=== PATIENT | female | born 1970 | race Caucasian/White ===

== ENCOUNTER → 2021-01-25 01:06 | Outpatient (CLI) | payer OTHER, SELFPAY ==
[2021-01-25 18:53] LABS: SARS-CoV-2 RNA PCR Negative
== END ==
PROVIDERS: Visit Provider Internal Medicine Gastroenterology
DX: Z01.812 Encounter for preprocedural laboratory examination (principal); Z20.822 Contact with and (suspected) exposure to COVID-19
CPT/HCPCS: C9803; U0003; U0005

== ENCOUNTER 2021-01-28 01:55 | Day surgery (SDC) | payer OTHER, SELFPAY ==
[2020-11-28 14:18] VITALS: BMI 36.3
[2021-01-16 11:47] VITALS: BMI 36.3
[2021-01-28 12:45] VITALS: BP 135/79; PULSE 78; RESP 18; TEMP 36.4; O2SAT 100; BMI 34.4
[2021-01-28] MEDS: LACTATED RINGERS 1,000 ML 150 ML IV CONT (12:57)
[2021-01-28 13:23] LABS: Glucose Point of Care 93 (65-105)
--- NOTE | 2021-01-28 13:32 | P.PNAN_ITS ---
Anes - Initial Pre Proc Eval Procedure: Operation Date: 01/28/21 13:30 Proposed Procedures p Esophagogastroduodenoscopy And Screening Colonoscopy - Madi Clay MD Date/Time: 01/28/21 13:32 Surgeon: Madi Caruso MD Pre Op Diagnosis: Neoplasm Screening, Heartburn Patient Data Age: 50 Gender: F Height: 5 ft 6 in Weight: 96.9 kg Last Vital Signs Temp 97.6 F 01/28/21 12:45 Pulse 78 01/28/21 12:45 Resp 18 01/28/21 12:45 BP 135/79 01/28/21 12:45 Pulse Ox 100 01/28/21 12:45 Allergies Allergy/AdvReac Type Severity Reaction Status Date / Time No Known Allergies Allergy Unverified 01/28/21 12:43 Home Medications Medication Instructions Recorded Confirmed Type Zypan 3 tab-cap PO TID 11/28/20 01/28/21 History ergocalciferol (vitamin D2) 50,000 unit PO WEEKLY 11/28/20 01/28/21 History losartan-hydrochlorothiazide 1 tablet PO DAILY 11/28/20 01/28/21 History metoprolol succinate 50 mg PO DAILY 11/28/20 01/28/21 History omeprazole 20 mg PO DAILY 11/28/20 01/28/21 History semaglutide [Ozempic] 1 mg SUBCUT WEEKLY 11/28/20 01/28/21 History simvastatin 10 mg PO DAILY 11/28/20 01/28/21 History Laboratory Tests 01/28/21 13:21 POC Capillary Glucose 93 mg/dl mg/dl (65-105) Patient hx anesthesia problems: none Family hx anesthesia problems: none [facility] Past Medical History Medical History (Updated 01/28/21 @ 13:32 by Anurag Eastman MD) Anemia Diabetes GERD (gastroesophageal reflux disease) Hyperlipidemia Hypertension Social History Social History Smoking status: Never smoker Substance use: never Substance use type: does not use Living arrangements: with family Spiritual care concerns: No Anes - Eval Final PreProcedure Day of Procedure 01/28/21 13:32 Patient weight: obese Heart: regular rate and rhythm Lungs: clear to auscultation Airway: Mallampati scale class II Neurological: alert and oriented Last oral intake: >/= 8 hours ASA classification: III Emergent: no Anesthetic plan: proceed Anesthesia type and monitoring: general GIVS and standard monitoring Informed Consent: The patient's anesthetic plan and its attendant risks and benefits were discussed with the patient/family/POA. Questions were solicited and answers provided to the satisfaction of the patient/family/POA.
--- NOTE | 2021-01-28 14:03 | PM.HPGS ---
History of Present Illness History of Present Illness Consent: Risks, benefits, and alternatives have been discussed and questions answered. Patient agrees to proceed with procedure. Chief complaint: Neoplasm Screening, Heartburn Narrative: Katy Kellogg is a 50 year old female with gerd on omeprazole for years, last EGD 5 years ago (grandmother had esophageal cancer), last colonoscopy more than 5 years ago. Review of Systems Constitutional: Constitutional: Denies headache(s) and Denies weakness Eyes: Eyes: Denies blurry vision ENT: Reports Normal hearing present, Denies headache(s) and Denies neck pain Cardiovascular: Cardiovascular: Denies chest pain and Denies dyspnea Respiratory: Respiratory: Denies dyspnea Gastrointestinal: Gastrointestinal: Reports no additional gastrointestinal complaints Genitourinary: Genitourinary: Denies dysuria Musculoskeletal: Musculoskeletal: Denies neck pain Integumentary/Breasts: Skin/Breast: Denies dry skin Neurologic: Reports Normal hearing present, Denies headache(s) and Denies weakness Psychiatric: Psychiatric: Denies anxiety Endocrine: Endocrine: Denies change in body appearance Hematologic/Lymphatic: Hematologic/Lymphatic: Denies easy bleeding Allergic/Immunologic: Allergic/Immunologic: Denies urticaria PMFSH Past Medical History Medical History (Updated 01/28/21 @ 14:04 by Madi Caruso MD) Anemia Colon cancer screening Diabetes GERD (gastroesophageal reflux disease) Hyperlipidemia Hypertension Social History Social History Smoking status: Never smoker Substance use: never Substance use type: does not use Living arrangements: with family Spiritual care concerns: No Meds Home Medications and Allergies Home Medications Medication Instructions Recorded Confirmed Type Zypan 3 tab-cap PO TID 11/28/20 01/28/21 History ergocalciferol (vitamin D2) 50,000 unit PO WEEKLY 11/28/20 01/28/21 History losartan-hydrochlorothiazide 1 tablet PO DAILY 11/28/20 01/28/21 History metoprolol succinate 50 mg PO DAILY 11/28/20 01/28/21 History omeprazole 20 mg PO DAILY 11/28/20 01/28/21 History semaglutide [Ozempic] 1 mg SUBCUT WEEKLY 11/28/20 01/28/21 History simvastatin 10 mg PO DAILY 11/28/20 01/28/21 History Allergies Allergy/AdvReac Type Severity Reaction Status Date / Time No Known Allergies Allergy Unverified 01/28/21 12:43 Vital Signs Vital Signs - 24 hr 01/28/21 12:45 Temperature 97.6 F Pulse Rate 78 Respiratory Rate 18 Blood Pressure 135/79 Pulse Oximetry 100 Exam Const: General: comfortable and no acute distress HENMT: General nose exam: Normal nares present Eyes: General: appearance normal, both eyes and all related structures Neck: Neck: no JVD Resp: Auscultation: clear to auscultation bilaterally Cardio: Rate: regular rate Rhythm: regular rhythm GI: Inspection: non-distended GI Palp: Yes Soft to palpation Skin: General skin exam: normal color Neuro: General: gait normal Speech: normal speech Extrem: General: normal to inspection Psych: Mental Status: mental status grossly normal Assessment and Plan Assessment and plan (1) Colon cancer screening: Code(s): Z12.11 - Encounter for screening for malignant neoplasm of colon Status: Acute Assessment and Plan: colonoscopy (2) GERD (gastroesophageal reflux disease): Code(s): K21.9 - Gastro-esophageal reflux disease without esophagitis Status: Acute Assessment and Plan: egd with bx, already on ppi
[2021-01-28] MEDS: BENZOCAINE (*SP) 60 ML SPRAY CAN (HURRICAINE) 1 SPRAY MUCOUS MEM (14:08)
[2021-01-28 14:34] VITALS: BP 126/75; PULSE 82; RESP 25; O2SAT 99
[2021-01-28 14:44] VITALS: BP 124/65; PULSE 71; RESP 19; O2SAT 99
[2021-01-28 14:48] VITALS: BP 137/89; PULSE 74; RESP 17; O2SAT 99
--- NOTE | 2021-01-28 15:06 | SUR.OPER ---
EGD START 1408, END 1413 COLONOSCOPY START 1420, END 1431
== END 2021-01-28 15:06 | disposition home or self-care (01) ==
PROVIDERS: PCP Family Medicine; Referring Provider Obstetrics & Gynecology Gynecology; Visit Provider Internal Medicine Gastroenterology
PROC: 0DJ08ZZ Inspection of Upper Intestinal Tract, Via Natural or Artificial Opening Endoscopic (ICD-10-PCS; CPT 43235; principal; 2021-01-28 13:30)
DX: Z12.11 Encounter for screening for malignant neoplasm of colon (principal); K64.8 Other hemorrhoids; K21.00 Gastro-esophageal reflux disease with esophagitis, without bleeding; K44.9 Diaphragmatic hernia without obstruction or gangrene; K31.7 Polyp of stomach and duodenum; I10 Essential (primary) hypertension; E11.9 Type 2 diabetes mellitus without complications; E78.5 Hyperlipidemia, unspecified; D64.9 Anemia, unspecified; E66.9 Obesity, unspecified; Z68.34 Body mass index [BMI] 34.0-34.9, adult
CPT/HCPCS: 45378; 43239; 82948; 88305; 88313; C9803; J2704; J7120; U0003; U0005

== ENCOUNTER → 2021-08-22 08:53 | Outpatient (CLI) | payer OTHER, SELFPAY ==
--- NOTE | ~2021-08-22 | MMUS_ITS ---
EXAMINATION: MM diagnostic tl BI w nelly, US breast RT limited HISTORY: History of bilateral breast reduction surgery. Focal right breast thickening in the region o f the right axillary tail TECHNIQUE: Additional 3-D tomosynthesis images of the breasts were performed and synthetic 2-D images were generated. CAD analysis was submitted and interpreted. High resolution Limited right breast ult rasound was performed. COMPARISON: None BREAST PARENCHYMAL COMPOSITION: Breast composed of scattered areas of fibroglandular density. FINDINGS: MAMMOGRAPHIC FINDINGS: There are no suspicious masses, calcifications or architectural distortion in either breast to sugges t malignancy. There is distortion of both breasts consistent with previous breast reduction surgery. ULTRASOUND: Limited right breast ultrasound: Normal heterogeneous echotexture without focal solid or cystic mass. IMPRESSION: 1. No evidence for malignancy in either breast. 2. Routine yearly screening mammogram and regular clinical breast examination are recommended. BI-RADS Category 1: Negative Reviewed, dictated and finalized at location A. IMPRESSION: 1. No evidence for malignancy in either breast. 2. Routine yearly screening mammogram and regular clinical breast examination a re recommended. BI-RADS Category 1: Negative
== END ==
PROVIDERS: PCP Family Medicine; Visit Provider Family Medicine
DX: D48.1 Neoplasm of uncertain behavior of connective and other soft tissue (principal); R92.8 Other abnormal and inconclusive findings on diagnostic imaging of breast
CPT/HCPCS: 76642; 77062; 77066; G0279

== ENCOUNTER → 2023-03-30 13:57 | Outpatient (CLI) | payer OTHER, SELFPAY ==
--- NOTE | ~2023-03-30 | MM_ITS ---
EXAMINATION: MM screening tl BI w nelly HISTORY: Screening mammogram TECHNIQUE: Craniocaudal and mediolateral oblique 3-D tomosynthesis images were obtained and synthetic 2-D images were generated. CAD analysis was submitted and interpreted. COMPARISON: 08/22/2021 diagnostic bilateral mammogram and limited right breast ultrasound 07/25/2018 bilateral screening mammogram BREAST PARENCHYMAL COMPOSITION: There are scattered areas of fibroglandular density. FINDINGS: There is stable fibroglandular asymmetry likely related to history of bilateral breast redu ction mammoplasty There is no evidence of suspicious mass, calcification, or architectural distortion to suggest malignancy in either breast. There has been no suspicious interval change. IMPRESSION: 1. No mammographic evidence of malignancy. 2. Recommend routine screening mammography in one year. BI-RADS Category 1: Negative Reviewed, dictated and finalized at location A.
== END ==
PROVIDERS: PCP Family Medicine; Visit Provider Obstetrics & Gynecology Gynecology
DX: Z12.31 Encounter for screening mammogram for malignant neoplasm of breast (principal)
CPT/HCPCS: 77063; 77067

== ENCOUNTER 2024-11-16 10:59 | Outpatient (CLI) | payer OTHER, SELFPAY ==
--- NOTE | ~2024-11-16 | MM_ITS ---
EXAMINATION: MM screening tl BI w nelly HISTORY: Screening TECHNIQUE: Craniocaudal and mediolateral oblique 3-D tomosynthesis images were obtained and synthetic 2-D images were generated. CAD analysis was submitted and interpreted. COMPARISON: Comparison to multiple prior studies sequentially, with oldest reviewed study dated 02/2021. BREAST PARENCHYMAL COMPOSITION: Not dense: There are scattered areas of fibroglandular density. FINDINGS: There is distortion of both breasts, consistent with prior breast reduction surgery. There is no evidence of suspicious mass, calcification, or architectural distortion to suggest malignancy i n either breast. There has been no suspicious interval change. IMPRESSION: 1. No mammographic evidence of malignancy. 2. Recommend routine screening mammography in one year. BI-RADS Category 2: Benign finding(s). Reviewed, dictated and finalized at location A. ELLA MENDER
== END 2024-11-16 11:00 | disposition home or self-care (01) ==
LOC: MICIMG 11:02
PROVIDERS: PCP Obstetrics & Gynecology Gynecology; Visit Provider Obstetrics & Gynecology Gynecology
DX: Z12.31 Encounter for screening mammogram for malignant neoplasm of breast (principal)
CPT/HCPCS: 77063; 77067

== ENCOUNTER 2025-08-31 10:05 | Outpatient (CLI) | payer OTHER, SELFPAY ==
--- NOTE | ~2025-08-31 | US_ITS ---
EXAMINATION: US pelvic complete, 08/31/2025 10:10 PHARMACY CLINICAL COORDINATOR HISTORY: Post menopause bleeding Comparison: None Technique: Morillo-scale and color Doppler images were obtained. Findings: Uterus: Uterus anteverted 12.4 x 7 x 10.6 cm, there are fibroids identified the largest in the anterior uterine body 4.9 x 4.8 cm. . Endometrium 1.4 cm. Right Ovary:Right ovary not identified. Left Ovary: Left ovary not identified. Free Fluid: None Impression: Probable fibroids detailed above. Abnormally thickened endometrium consenting for neoplasm. Tissue sampling recommended. Reviewed, dictated and finalized at location P. MACY CLINICAL COORDINATOR Impression: Probable fibroids detailed above. Abnormally thickened endometrium consenting f or neoplasm. Tissue sampling recommended.
== END 2025-08-31 10:06 | disposition home or self-care (01) ==
PROVIDERS: PCP Obstetrics & Gynecology Gynecology
DX: N95.0 Postmenopausal bleeding (principal)
CPT/HCPCS: 76856

== ENCOUNTER 2025-09-12 08:01 | Outpatient (CLI) | payer OTHER, SELFPAY ==
--- OUTSIDE RECORDS SUMMARY | 2025-09-12 08:07 | XMS_ITS | Clinical Summary ---
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 Gender Identity Not on file Sexual Orientation Not on file Plan of Treatment Health Maintenance Due Date Last Done Comments Cervical Cancer Screening Pa p Smear (Age 30 to 64) Every 3 Years 1969 Colorectal Cancer Screening Colonoscopy (10 Years) 1969 Annual Physical 1972 Hepatitis C 1987 DTaP, Tdap and Td Vaccines ( 1 - Tdap) 1988 Hepatitis B Vaccines (1 of 3 - 19+ 3-dose series) 1988 Cervical Cancer Screening Pa p with HPV Testing (Age 30 to 64) Every 5 Years 1999 Cervical Cancer Screening with HPV 1999 Mammogram Screening 2009 Pneumococcal Vaccine: 50+ Ye ars (1 of 1 - PCV) 2019 Zoster Vaccines (1 of 2) 2019 COVID-19 Vaccine (1 - 2024-2 6 season) 2025 Influenza Adult (#1) 2025 Hepatitis A Vaccines Aged Out No long er eligible based on patient's age to complete this topic Meningococcal B Vaccine Aged Out No l onger eligible based on patient's age to complete this topic Meningococcal Vaccine Aged Out No nichole ron eligible based on patient's age to complete this topic RSV Immunizations Under 20 Months Aged Out No longer eligible based on patient's age to complete this topic Advance Directives Documents on File Type Date Recorded Patient Patient Portal Representative Expl anation Advance Directives and Living Will 09/16/2015 POWER OF [employer] [facility]
[2025-09-12 10:26] LABS: Anion Gap 8 mmol/L (4-12); Blood Urea Nitrogen 11 mg/dL (7-17); Calcium 9.5 mg/dL (8.4-10.2); Carbon Dioxide 27 mmol/L (22-30); Chloride 102 mmol/L (98-107); Estimated Glomerular Filt Rate > 60; Glucose 103 mg/dL (65-110); Potassium 3.2 mmol/L (3.4-5.0); Sodium 137 mmol/L (137-145)
== END 2025-09-12 08:02 | disposition home or self-care (01) ==
LOC: ANHSURGERY 08:05
PROVIDERS: Anesthesiology; PCP Family Medicine; Visit Provider Obstetrics & Gynecology Gynecology
DX: Z79.899 Other long term (current) drug therapy (principal); Z01.818 Encounter for other preprocedural examination
CPT/HCPCS: 36415; 80048

== ENCOUNTER 2025-09-17 01:42 | Day surgery (SDC) | payer OTHER, SELFPAY ==
[2025-09-10 09:57] VITALS: BMI 33.2
--- NOTE | 2025-09-10 12:19 | PC.NURSE ---
[facility] has started construction of its new state of the art ER which will open Spring 2026. With this, we anticipate parking may be a challenge for some our surgical patients and families. Parking spaces are limited but are available for all Surgical, obstetrics, and ER patients sharing this lot. If you arrive and find you are having a hard time finding a parking space, please note that we understand the challenges, please drive around the hospital and park near Hospital Entrance 1. When you enter this entrance, you can ask a volunteer to direct or take you back to the surgical waiting area to check in. We appreciate everyone?s understanding of these expected challenges while we build for your future. Report to the Outpatient Waiting Room, entrance under the green pavilion located off [address], at time _0745 on date __09/17/25 . Planned Procedure Time: __0945 .? Time changes happen often and if your time is changed the preop area will call you the afternoon before. - You and your visitor will be asked to self-screen and do not enter if you have any COVID symptoms. Please call surgeon if you need to reschedule. - A mask is optional within the hospital at this time. Patients may have clear liquids (water, carbonated beverages, clear teas, apple juice) until 3 hours prior to surgery with a maximum of 20 ounces. - No food from midnight until time of surgery and no smoking, or chewing tobacco (or any form of nicotine). No chewing gum, candy or mints. - Infants may have breast milk until 4 hours before surgery, infant formula 6 hours prior to surgery. - Children will be allowed to drink immediately following surgery.? If applicable, please bring a bottle or sippy cup to assist with drinking. Juice, water, soda, and popsicles are readily available.? For infants on formula, please bring formula the day of surgery.? Pacifiers are allowed. Take only the following medications with a SIP of water on the morning of surgery: _N/A DO NOT STOP ANY OF YOUR OTHER PRESCRIPTION MEDICATIONS PRIOR TO SURGERY EXCEPT THE FOLLOWING Hold all vitamins and supplements for 3 days per anesthesiologist. Medications to discontinue per physician __N/A Date to take last dose Please no make-up, nail gambian, hairspray, perfume, deodorant, or body powder the day of surgery.? No jewelry (including any body piercings) or valuables the day of surgery, leave them at home.? Please take a shower or bath the night before, or the morning of, surgery with an antibacterial soap.? Wear comfortable, loose fitting clothing.? Children are encouraged to wear pajamas. - Jewelry must be removed prior to entering the operating room.? Rings and piercings that are not removed may be cut off. - The hospital will not accept responsibility for valuables.? - Please leave all valuables, including medications, at home the day of surgery. If you are going home after surgery, a licensed trailer tank truck driver must drive you home.? - NO public transportation without another adult if you receive anesthesia. - We recommend that an adult stay with you for 24 hours following discharge. - We also recommend that you do not drive, make important decision, drink alcoholic beverages, or take any drugs that were not prescribed by your health care provider for at least 24 hours after your discharge time. For Pediatric surgeries, we recommend two adults accompany the child home. Follow any additional instructions given to you from your surgeon. Telephone instructions given to Alexis and asked if any additional questions and then verbalized understanding. Patient advised to call surgeon office or pre surgery nurse liaison [phone] if any additional questions.
--- NOTE | 2025-09-17 07:40 | WPDHPUPDATE1 ---
History and Physical Update Update Date/Time: 09/17/25 07:40 History and Physical has been reviewed, including an updated exam of the patient. There are NO changes in the patient's condition. Risks, benefits, and alternatives have been discussed and questions answered. Patient agrees to proceed with procedure.
--- NOTE | 2025-09-17 07:40 | PM.HPGS ---
History of Present Illness History of Present Illness Consent: Risks, benefits, and alternatives have been discussed and questions answered. Patient agrees to proceed with procedure. Chief complaint: post menopausal bleeding Narrative: Katy Kellogg is a 55 year old female with postmenopausal bleeding and thickened endometrium at 1.4cm. It was recommended to undergo D&C hysteroscopy. Risks of infection, bleeding, perforation, and possible pathology are reviewed. Patient voices understanding and agrees to proceed. Review of Systems Review of Systems: not repeated day of surgery; patient states no changes in status [facility] Past Medical History Medical History (Updated 09/17/25 @ 07:43 by Tricia Moctezuma MD) (normal spontaneous vaginal delivery) X3 Hypothyroid Diabetes GERD (gastroesophageal reflux disease) Hyperlipidemia Hypertension Surgical History Surgical History (Updated 09/17/25 @ 07:42 by Tricia Moctezuma MD) History of hysteroscopy 2017 with myomectomy History of bilateral breast reduction surgery Hx of [facility] Social History Social History Smoking status: Never smoker Substance use: never Substance use type: does not use Living arrangements: with family Spiritual care concerns: No Meds Home Medications and Allergies Home Medications ?Medication ?Instructions ?Recorded ?Confirmed ?Type ergocalciferol (vitamin D2) 1,250 50,000 unit PO WEEKLY 11/28/20 09/10/25 History mcg (50,000 unit) capsule losartan 100 1 tablet PO DAILY 11/28/20 09/10/25 History mg-hydrochlorothiazide 25 mg tablet metoprolol succinate 50 mg 50 mg PO HS 11/28/20 09/10/25 History tablet,extended release 24 hr omeprazole 20 mg capsule,delayed 20 mg PO DAILY 11/28/20 09/10/25 History release progesterone PO DAILY 09/10/25 History tirzepatide 12.5 mg/0.5 mL 12.5 mg subcut WEEKLY 09/10/25 09/10/25 History subcutaneous pen injector (Mounjaro) Allergies Allergy/AdvReac Type Severity Reaction Status Date / Time No Known Allergies Allergy Verified 09/10/25 09:50 Exam Const: General: healthy appearing and alert Orientation/consciousness: patient oriented x3 Resp: Effort & Inspection: normal respiratory effort GI: GI Palp: Yes Soft to palpation, No Tenderness to palpation present (GI) and No Palpable mass present : External Female Exam: normal external appearance Speculum Exam - Vagina: normal appearance of the vagina and normal vaginal discharge Speculum Exam - Cervix: normal appearance of the cervix Bimanual exam- vagina & uterus: uterine size normal and consistency normal Bimanual Exam- Adnexa, other: normal adnexae and No adnexal tenderness Neuro: General: patient oriented x3 Assessment and Plan Assessment and plan (1) Post-menopausal bleeding: Code(s): N95.0 - Postmenopausal bleeding Status: Acute Assessment and Plan: Plan to proceed with D&C hysteroscopy
[2025-09-17 09:45] VITALS: BP 152/83; PULSE 78; RESP 14; TEMP 36.9; O2SAT 100; BMI 33.7
[2025-09-17] MEDS: ACETAMINOPHEN 500 MG TABLET 1000 MG PO (09:48)
[2025-09-17] MEDS: LACTATED RINGERS 1,000 ML 30 ML IV CONT (10:00)
--- NOTE | 2025-09-17 10:06 | WPDANESEPPF ---
Anes - Initial Pre Proc Eval Procedure: Operation Date: 09/17/25 11:15 Proposed Procedures p Hysteroscopy Dilation and Curettage - Tricia Moctezuma MD Date/Time: 09/17/25 10:06 Surgeon: Tricia Moctezuma MD Pre Op Diagnosis: post menopausal bleeding Patient Data Age: 55 Gender: F Height: 1.68 m Weight: 94.8 kg Last Vital Signs Temp 36.9 C 09/17/25 09:45 Pulse 78 09/17/25 09:45 Resp 14 09/17/25 09:45 BP 152/83 H 09/17/25 09:45 Pulse Ox 100 09/17/25 09:45 O2 Del Method Room Air 09/17/25 09:45 Allergies Allergy/AdvReac Type Severity Reaction Status Date / Time No Known Allergies Allergy Verified 09/10/25 09:50 Home Medications ?Medication ?Instructions ?Recorded ?Confirmed ?Type ergocalciferol (vitamin D2) 1,250 50,000 unit PO WEEKLY 11/28/20 09/10/25 History mcg (50,000 unit) capsule losartan 100 1 tablet PO DAILY 11/28/20 09/10/25 History mg-hydrochlorothiazide 25 mg tablet metoprolol succinate 50 mg 50 mg PO HS 11/28/20 09/10/25 History tablet,extended release 24 hr omeprazole 20 mg capsule,delayed 20 mg PO DAILY 11/28/20 09/10/25 History release progesterone PO DAILY 09/10/25 History tirzepatide 12.5 mg/0.5 mL 12.5 mg subcut WEEKLY 09/10/25 09/10/25 History subcutaneous pen injector (Mounjaro) Laboratory Tests 09/17/25 09:53 POC Capillary Glucose 104 mg/dl (65-105) Patient hx anesthesia problems: none Family hx anesthesia problems: none Results Review: All pre-operative results and documents have been reviewed as part of the pre-operative evaluation. FORMERLY [facility], [facility] Past Medical History Medical History (normal spontaneous vaginal delivery) X3 Hypothyroid Diabetes GERD (gastroesophageal reflux disease) Hyperlipidemia Hypertension Surgical History Surgical History History of hysteroscopy 2016 with myomectomy History of bilateral breast reduction surgery Hx of [facility]A Social History Social History Smoking status: Never smoker Substance use: never Substance use type: does not use Living arrangements: with family Spiritual care concerns: No Anes - Eval Final PreProcedure Day of Procedure 09/17/25 10:06 Patient weight: obese Heart: regular rate and rhythm Lungs: clear to auscultation Airway: Mallampati scale class III Neurological: alert and oriented Last oral intake: >/= 8 hours ASA classification: III Emergent: no Anesthetic plan: proceed Anesthesia type and monitoring: general GIVS and standard monitoring Results Review: All pre-operative results and documents have been reviewed as part of the pre-operative evaluation. Informed Consent: The patient's anesthetic plan and its attendant risks and benefits were discussed with the patient/family/POA. Questions were solicited and answers provided to the satisfaction of the patient/family/POA.
--- NOTE | 2025-09-17 10:34 | S_PTH ---
PATIENT: Katy Kellogg LOC: [facility] U#:[id number] AGE/SX: 55/F ROOM: RE09/17/[address]: Tricia Moctezuma MD : 1970 BED: DIS: 09/17/2025 SPEC #: [id number] RECD: 09/17/25 11:49 STATUS: MOE REQ #: [id number] MISHA: 09/17/25 10:[address]: Tricia Moctezuma DEPT: [facility] Surgical RECD BY: Sherrie Naranjo ENTERED: 09/17/25 11:50 SP TYPE: Surgical OTHR DR: ROSELINE BAMD Tissues: A - Endometrial Curettings Procedures: Hematoxylin and Eosin Stain Gross and Microscopic Level 4
--- NOTE | 2025-09-17 10:40 | W.PM.PROC2 ---
Procedure Note - Detailed Date of Procedure 09/17/25 Pre-op Diagnosis post menopausal bleeding Post-op Diagnosis Same Procedure Performed D&C hysteroscopy Surgeon Tricia Moctezuma MD Anesthesia MAC Findings The uterus sounds to 11cm and appears grossly atrophic. There is a fibroid anterior. I am able to see fully around the fibroid. There were 2 polyps at the right cornua. Description of Procedure The patient was taken to the operating room and placed under anesthesia in the dorsal lithotomy position. She was prepped and draped in the usual sterile fashion. [place] speculum was placed in the vagina and the cervix grasped on the anterior lip with tenaculum. The uterus is sounded to 11cm. The diagnostic hysteroscope was placed and with the above-stated findings the Aveta small resection device was opened and placed. Under direct visualization both polyps were removed in their entirety. The hysteroscope was removed. The endometrium was curetted with a sharp curette until a good uterine cry was noted in all areas. Instruments are removed. Sponge, needle, and instrument counts are correct per the OR staff. The patient was taken to recovery in stable condition. Estimated Blood Loss 5 Drains No Packing No Pathology Yes (Endometrial curettings and shavings) Complications No immediate complications Condition Stable Disposition PACU
[2025-09-17 10:42] VITALS: BP 149/72; PULSE 78; RESP 12; O2SAT 97
[2025-09-17 11:10] VITALS: BP 151/78; PULSE 76; RESP 12; O2SAT 97
[2025-09-17 11:37] VITALS: BP 160/79; PULSE 74; RESP 12
== END 2025-09-17 11:46 | disposition home or self-care (01) ==
PROVIDERS: PCP Family Medicine; Visit Provider Obstetrics & Gynecology Gynecology
PROC: 0U5B8ZZ Destruction of Endometrium, Via Natural or Artificial Opening Endoscopic (ICD-10-PCS; CPT 58563; principal; 2025-09-17 11:15)
DX: N95.0 Postmenopausal bleeding (principal); D25.9 Leiomyoma of uterus, unspecified; N84.0 Polyp of corpus uteri; E11.9 Type 2 diabetes mellitus without complications; E66.9 Obesity, unspecified; Z68.33 Body mass index [BMI] 33.0-33.9, adult
CPT/HCPCS: 58558; 82948; 88305; A9270; J2250; J2270; J2704; J7120

== ENCOUNTER 2025-09-18 09:27 | Outpatient (CLI) | payer OTHER, SELFPAY ==
--- NOTE | ~2025-09-18 | DEXA_ITS ---
Bone Density Report Name: JARAD BTUCHER Age: 55 Sex: Female Ethnicity: White Date of : 1970 Indication: postmenopausal; screening for osteoporosis; Referring Provider: FILI, NASIR Study: Bone densitometry was performed. Exam Date: September 18, 2025 Accession number: [id number] Bone Density: Region BMD T-score Z-score Classification AP Spine(L1-L4) 1.234 1.7 2.9 Normal Femoral Neck (Left) 0.853 0.0 1.1 Normal Total Hip (Left) 1.118 1.4 2.2 Normal Femoral Neck (Right) 0.940 0.8 1.9 Normal Total Hip (Right) 1.142 1.6 2.4 Normal Total Hip Mean 1.130 1.5 2.3 Normal World Health Organization criteria for BMD impression classify patients as: Normal (T-score at or above -1.0), Osteopenia (T-score between -1.0 and -2.5), or Osteoporosis (T-score at or below -2.5). 10-year Fracture Risk: FRAX not reported because: All T-scores for Spine Total, Hip Total, Femoral Neck at or above -1.0 Clinical Information Provided by Patient: Has used the following medications: Vitamin D Patient maximum height was 67.5 Menopause Age: 53 Onset of menses at age 13 Number of children 3 Impression: The patient has normal bone mass. Discussion: BONE DENSITY IS ABOVE THE MINIMUM DESIRABLE LEVEL AT ALL SKELETAL SITES TESTED. This patient?s bone mineral density is above the minimum desirable level (T-score -1.0 or better) at all sites measured. The patient should follow a healthful lifestyle (good nutrition with adequate calcium and vitamin D, and appropriate weight-bearing exercise). Follow-Up: Consider repeating this study in 5 years or sooner if there is some new clinical indication. Reported by: TOMA on 09/18/2025 9:47:00 AM. Reviewed, dictated and finalized at location A.
== END 2025-09-18 09:28 | disposition home or self-care (01) ==
LOC: MICIMG 09:28
PROVIDERS: PCP Family Medicine
DX: Z78.0 Asymptomatic menopausal state (principal); Z13.820 Encounter for screening for osteoporosis
CPT/HCPCS: 77080